=== PATIENT | male | born 1950 | race Caucasian/White ===

== ENCOUNTER 2020-10-31 12:54 | Emergency (ER) | payer OTHER, SELFPAY ==
[~2020-10-31] VITALS: Ht 170.2 cm; Wt 97.1 kg
[~2020-10-31 12:54] MED LIST: AUG500 PO; COL0.6 PO; FLA500 PO; LAC PO; LOP50 PO; ZES20 PO; ZYL300 PO
[2020-10-31 12:55] VITALS: Ht 170.2 cm; Wt 97.1 kg
[2020-10-31 14:47] VITALS: BP 148/85
== END 2020-10-31 14:47 | disposition home or self-care (01) ==
LOC: ED 12:54
DX: U07.1 COVID-19 (principal); I10 Essential (primary) hypertension; E78.00 Pure hypercholesterolemia, unspecified
CPT/HCPCS: U0003